=== PATIENT | female | born 1940 | race Caucasian/White ===

== ENCOUNTER → 2017-05-16 | Outpatient (CLI) | payer MEDICARE, OTHER ==
[~2017-05-16] MED LIST: IOHEXOL 240 MG/ML 50ML VIAL. ONE; IOHEXOL 300 MG/ML 75 ML VIAL. IV ONE
--- NOTE | 2017-05-16 10:42 | RAD ---
EXAM: CT abdomen/pelvis with contrast. HISTORY: Right upper quadrant pain. TECHNIQUE: Computed tomography of the abdomen and pelvis was performed after the intravenous administration of 60 mL Omnipaque 300. COMPARISON: None. FINDINGS: Lung windows through the visualized portions of the bases reveal mild atelectasis and a few calcified granulomas. Bone windows reveal no suspicious lesions. There is slight grade 1 anterolisthesis at L4-5 from facet osteoarthritis. Multiple small hepatic cysts measure up to 2.1 x 1.6 cm in segment 7. Scattered hepatic and splenic calcified granulomas are also noted. The adrenal glands are unremarkable. The gallbladder is surgically absent. The common duct is mildly dilated at 9 mm. There is mild intrahepatic biliary dilatation. There is a 1.3 x 0.7 cm cystic lesion along the inferior aspect of the pancreatic body. No solid pancreatic parenchymal lesions are seen. The main pancreatic duct is not dilated. There are no pathologically enlarged lymph nodes. Note is made of a circumaortic left renal vein. The uterus is surgically absent. The appendix is not inflamed. There is no obstruction. A small umbilical hernia contains only fat. IMPRESSION: 1. Mild intra and extrahepatic biliary dilatation status post cholecystectomy. No clear distal obstructing lesion. Correlate for cholestasis to assess significance. 2. A 13 mm cystic lesion along the body of the pancreas may represent a cyst or sidebranch intraductal papillary mucinous neoplasm. MRCP with and without contrast could further exclude a solid component. 3. Small umbilical hernia containing only fat. *One or more of the following individualized dose reduction techniques were utilized for this examination: 1. Automated exposure control. 2. Adjustment of the mA and/or kV according to patient size. 3. Use of iterative reconstruction technique.
== END | disposition home or self-care (01) ==
LOC: CT 07:50
PROVIDERS: ATTEND Internal Medicine
DX: K42.9 Umbilical hernia without obstruction or gangrene (principal); J98.11 Atelectasis; J84.10 Pulmonary fibrosis, unspecified; K76.89 Other specified diseases of liver; M47.896 Other spondylosis, lumbar region; Z90.710 Acquired absence of both cervix and uterus; Z90.49 Acquired absence of other specified parts of digestive tract
CPT/HCPCS: 74177; Q9966; Q9967

== ENCOUNTER → 2017-12-12 | Outpatient (CLI) | payer MEDICARE, OTHER ==
--- NOTE | 2017-12-12 14:53 | RAD ---
DATE: 12/12/2017 EXAM: MAMMO LETICIA SCREENING BILATERAL HISTORY: Routine screening COMPARISON: 12/07/2015 This study was interpreted with the benefit of Computerized Aided Detection (CAD). The breast parenchyma is heterogeneously dense, which could reduce sensitivity of mammography. Breast parenchyma level C. FINDINGS: 2-D and 3-D tomosynthesis imaging was performed in CC and MLO projections. No new or enlarging breast densities are seen. Benign type calcifications are present. No suspicious microcalcifications have developed. IMPRESSION: Stable mammograms without evidence of malignancy. BI-RADS CATEGORY: 2 BENIGN FINDING(S) RECOMMENDED FOLLOW-UP: 12M 12 MONTH FOLLOW-UP PQRS compliance statement: Patient information was entered into a reminder system with a target due date for the next mammogram. Mammography is a sensitive method for finding small breast cancers, but it does not detect them all and is not a substitute for careful clinical examination. A negative mammogram does not negate a clinically suspicious finding and should not result in delay in biopsying a clinically suspicious abnormality. "Our facility is accredited by the [employer] Mammography Program."
== END | disposition home or self-care (01) ==
LOC: MAMMO 10:21
PROVIDERS: ATTEND Internal Medicine
DX: Z12.31 Encounter for screening mammogram for malignant neoplasm of breast (principal)
CPT/HCPCS: 77063; 77067

== ENCOUNTER → 2018-12-19 | Outpatient (CLI) | payer MEDICARE, OTHER ==
--- NOTE | 2018-12-19 15:18 | RAD ---
DATE: 12/19/2018 EXAM: MAMMO LETICIA SCREENING BILATERAL HISTORY: Routine screening COMPARISON: 12/12/2017 This study was interpreted with the benefit of Computerized Aided Detection (CAD). Breast Density: HETERO The breast parenchyma is heterogenously dense, which could reduce sensitivity of mammography. Breast parenchyma level C. FINDINGS: 2-D and 3-D tomosynthesis imaging was performed in CC and MLO projections. No new or enlarging breast densities are seen. Benign type calcifications are present. No suspicious microcalcifications have developed. IMPRESSION: Stable mammograms without evidence of malignancy. BI-RADS CATEGORY: 2 BENIGN FINDING(S) RECOMMENDED FOLLOW-UP: 12M 12 MONTH FOLLOW-UP PQRS compliance statement: Patient information was entered into a reminder system with a target due date for the next mammogram. Mammography is a sensitive method for finding small breast cancers, but it does not detect them all and is not a substitute for careful clinical examination. A negative mammogram does not negate a clinically suspicious finding and should not result in delay in biopsying a clinically suspicious abnormality. "Our facility is accredited by the [employer] Mammography [employer]."
== END | disposition home or self-care (01) ==
LOC: MAMMO 14:03
PROVIDERS: ATTEND Internal Medicine
DX: Z12.31 Encounter for screening mammogram for malignant neoplasm of breast (principal); N64.89 Other specified disorders of breast
CPT/HCPCS: 77063; 77067

== ENCOUNTER → 2020-01-12 | Outpatient (CLI) | payer MEDICARE ==
--- NOTE | 2020-01-12 14:42 | RAD ---
DATE: 01/12/2020 7:50 AM EXAM: DIGITAL SCREEN BILAT W/CAD HISTORY: Screening COMPARISON: 12/19/2018, 12/12/2017 Bilateral full field craniocaudal and mediolateral oblique images were obtained using digital technique. This study was interpreted with the benefit of Computerized Aided Detection (CAD). FINDINGS: Breast Density: HETERO The breast parenchyma Is heterogeneously dense, which could reduce sensitivity of mammography. Breast parenchyma level C No suspicious masses, microcalcifications or architectural distortion is present to suggest malignancy in either breast. The visualized axillae are unremarkable. IMPRESSION: No mammographic evidence of malignancy. BI-RADS CATEGORY: 1 NEGATIVE RECOMMENDED FOLLOW-UP: 12M 12 MONTH FOLLOW-UP Annual screening mammography is recommended, unless clinically indicated sooner based on symptoms or change in physical exam. PQRS compliance statement: Patient information was entered into a reminder system with a target due date 01/12/2021 for the next mammogram. Mammography is a sensitive method for finding small breast cancers, but it does not detect them all and is not a substitute for careful clinical examination. A negative mammogram does not negate a clinically suspicious finding and should not result in delay in biopsying a clinically suspicious abnormality. "Our facility is accredited by the [employer] Mammography Program."
== END | disposition home or self-care (01) ==
LOC: MAMMO 07:46
PROVIDERS: ATTEND Internal Medicine
DX: Z12.31 Encounter for screening mammogram for malignant neoplasm of breast (principal)
CPT/HCPCS: 77067

== ENCOUNTER → 2021-01-13 | Outpatient (CLI) | payer MEDICARE ==
--- NOTE | 2021-01-13 14:32 | RAD ---
PROCEDURE: MG 2D BILAT SCREENING HISTORY: The patient is 80 years old and is seen for Reason: screening / Spl. Instructions: / Histor y: . COMPARISON: January 12, 2020 TECHNIQUE: CC and MLO views of both breasts were obtained. Images were processed by the [employer] computer-aided detection system. DENSITY: The breast parenchyma is heterogeneously dense. This may lower the sensitivity of mammograph y. FINDINGS: No developing mass, suspicious calcifications or architectural distortion. IMPRESSION: Negative. No evidence of malignancy. Recommend annual screening mammograms per [employer] guidelines. She will be due in one year. BI-RADS category 1 Negative Patient entered into a reminder system for annual screening mammogram. Electronically signed by: Emil Terrell DO (01/13/2021 2:29 PM) [id number]
== END ==
LOC: MAMMO 13:50
PROVIDERS: ATTEND Internal Medicine
DX: Z12.31 Encounter for screening mammogram for malignant neoplasm of breast (principal)
CPT/HCPCS: 77067

== ENCOUNTER → 2021-02-06 | Outpatient (CLI) | payer MEDICARE ==
--- NOTE | 2021-02-06 15:05 | RAD ---
EXAM: Abdomen, 2 views. HISTORY: Pain. COMPARISON: 05/16/2017 FINDINGS: 2 views of the abdomen are obtained. There is gas and stool within the colon. No abnormally dilated loop of bowel is seen. There are pelvic fluid was. There are cholecystectomy clips. There is slight sacralization of the L5 vertebral segment, a normal variant. IMPRESSION: Nonobstructive bowel gas pattern. Electronically signed by: Liza Jones MD (02/06/2021 3:02 PM) [id number]
== END ==
LOC: RAD 13:41
PROVIDERS: ATTEND Internal Medicine
DX: R10.30 Lower abdominal pain, unspecified (principal); M43.27 Fusion of spine, lumbosacral region
CPT/HCPCS: 74019